=== PATIENT | male | born 1990 | race Caucasian/White ===

== ENCOUNTER 2018-12-10 08:34 | Emergency (ER) | payer OTHER ==
[2018-12-10] MEDS ORDERED: predniSONE 20 MG Tab PO STA (08:59)
[2018-12-10] MEDS ORDERED: Albuterol/Ipratropium 3.0-0.5 MG/3 ML Neb Soln NEB ONE (08:59)
[2018-12-10] MEDS ORDERED: Albuterol 0.083% 2.5 MG/3 ML Neb Soln NEB ONE ×2 (09:25→09:55)
--- NOTE | 2018-12-10 09:40 | EDM.PDOC ---
ED HPI GENERAL MEDICAL PROBLEM - General Chief Complaint: Respiratory Problem Stated Complaint: ASTHMA ATTACK Time Seen by Provider: 12/10/18 08:42 - History of Present Illness INITIAL COMMENTS - FREE TEXT/NARRATIVE: The patient states that he has had asthma his entire life, along with allergic rhinitis. He states that he developed dyspnea, wheezing, and a cough productive of greenish sputum about a week or so ago. He has had chest tightness, but no recent fever or palpitations. No recent nausea, vomiting, constipation, or diarrhea. The patient states that he has been taking about 4 puffs of albuterol via his MDI, without a space chamber, 3-4 times a day. He states that he gets only temporary relief from this. When asked to demonstrate his MDI technique, the patient shortly MDI for only a few seconds, then put it in his mouth. The patient has never been evaluated by a Seating And Mobility Technologist nor undergone pulmonary function tests. He does not have a peak flow meter. The patient does not have a PCP. 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: Reports: Breathing Treatments - Related Data Allergies Allergy/AdvReac Type Severity Reaction Status Date / Time No Known Allergies Allergy Verified 12/10/18 08:41 Home Meds: Home Meds Albuterol [Proventil HFA] 2 puff INH ONCALL PRN 06/15/15 [History] predniSONE [Prednisone] 2 tab PO DAILY #8 tablet 12/10/18 [Rx] Past Medical History HEENT History: Reports: Allergic Rhinitis Respiratory History: Reports: Asthma (suspected, never tested) Gastrointestinal History: Reports: PUD - Past Surgical History HEENT Surgical History: Reports: Oral Surgery (wisdom teeth extraction) GI Surgical History: Reports: EGD (x 1) Musculoskeletal Surgical History: Reports: ORIF (right elbow) Social & Family History - Tobacco Use Smoking Status *Q: Former Smoker Years of Tobacco use: 9 Packs/Tins Daily: 0.3 Month/Year Tobacco Last Used: Quit late October 2018 - Caffeine Use Caffeine Use: Reports: None - Alcohol Use Alcohol Use History: Yes Alcohol Use Frequency: Socially (occasionally to excess) - Recreational Drug Use Recreational Drug Use: No - Living Situation & Occupation Living situation: Reports: Single, with Significant Other (Girlfriend), with Family (2 kids) 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 ED EXAM, GENERAL - Physical Exam Exam: See Below Exam Limited By: No Limitations General Appearance: Alert, WD/WN, No Apparent Distress Eye Exam: Bilateral Eye: EOMI, Normal Inspection Ears: Normal External Exam, Normal Canal, Hearing Grossly Normal, Normal TMs Nose: Normal Inspection, No Blood, Other (Bilateral nasal mucosa edema) Throat/Mouth: Normal Inspection, Normal Lips, Normal Teeth, Normal Gums, Normal Oropharynx (large tonsils), Normal Voice, No Airway Compromise Head: Atraumatic, Normocephalic Neck: Normal Inspection, Supple, Non-Tender, Full Range of Motion. No: Lymphadenopathy (L), Lymphadenopathy (R) Respiratory/Chest: No Respiratory Distress, No Accessory Muscle Use, Wheezing ( expiratory), Prolonged Expiration. No: Decreased Breath Sounds, Crackles, Rhonchi Cardiovascular: Normal Peripheral Pulses, Regular Rate, Rhythm, No Edema, No Gallop, No JVD, No Murmur, No Rub Peripheral Pulses: 4+: Radial (L), Radial (R) GI/Abdominal: Normal Bowel Sounds, Soft, Non-Tender, No Organomegaly, No Distention, No Abnormal Bruit, No Mass (Male) Exam: Deferred Rectal (Males) Exam: Deferred Back Exam: Normal Inspection, Full Range of Motion, NT Extremities: Normal Inspection, Normal Range of Motion, No Pedal Edema, Normal Capillary Refill Neurological: Alert, Oriented, Normal Cognition, No Motor/Sensory Deficits Psychiatric: Normal Affect Skin Exam: Warm, Dry, Intact, Normal Color, No Rash Course - Vital Signs Last Recorded V/S: Last Vital Signs Temp 36.3 C 12/10/18 08:40 Pulse 103 H 12/10/18 08:40 Resp 20 12/10/18 08:40 BP 167/83 H 12/10/18 08:40 Pulse Ox 98 12/10/18 09:25 - Orders/Labs/Meds Orders: Active Orders 24 hr Category Date Time Status RT Aerosol Therapy [RC] ASDIRECTED Care 12/10/18 08:59 Active RT Aerosol Therapy [RC] ASDIRECTED Care 12/10/18 09:25 Active RT Aerosol Therapy [RC] ASDIRECTED Care 12/10/18 09:55 Ordered RT Peak Flow Measurement [RC] ASDIRECTED Care 12/10/18 09:01 Active Meds: Medications Discontinued Medications Generic Name Dose Route Start Last Admin Trade Name Aidan PRN Reason Stop Dose Admin Albuterol 2.5 mg 12/10/18 09:25 12/10/18 09:36 Proventil Neb Soln NEB 12/10/18 09:26 2.5 mg ONETIME ONE Administration Albuterol 2.5 mg 12/10/18 09:55 Proventil Neb Soln [facility] 12/10/18 09:56 ONETIME ONE Albuterol/Ipratropium 3 ml 12/10/18 08:59 12/10/18 09:06 Duoneb 3.0-0.5 Mg/3 Ml NEB 12/10/18 09:00 3 ml ONETIME ONE Administration Prednisone 60 mg 12/10/18 08:59 12/10/18 09:20 Prednisone PO 12/10/18 09:00 60 mg ONETIME STA Administration - Re-Assessments/Exams Free Text/Narrative Re-Assessment/Exam: 12/10/18 09:35 The patient's expiratory wheezing improved substantially following a DuoNeb, however, has not completely resolved, therefore I have ordered an albuterol neb. I will continue to monitor the patient's pulmonary status. The patient was given 60 mg oral prednisone. It is my intention to discharge him home with a prescription for 40 mg daily for the next 4 days. The patient was provided with both a peak flow meter and a space chamber, and instructed on both of their uses. 12/10/18 09:56 The patient's expiratory wheezing has improved further following an albuterol neb treatment. I have ordered a second albuterol neb treatment, after which I will discharge him home. The patient has been advised to not take any NSAIDs while he is on prednisone. I will give him a note to be off work until Thursday, . I will refer him to a Seating And Mobility Technologist in [place]. Departure - Departure Time of Disposition: 09:57 Disposition: Home, Self-Care 01 Condition: Good Clinical Impression: Asthma exacerbation - Discharge Information *PRESCRIPTION DRUG MONITORING PROGRAM REVIEWED*: Not Applicable *COPY OF PRESCRIPTION DRUG MONITORING REPORT IN PATIENT JUSTINO: Not Applicable Referrals: Robin oJn MD [Consulting Physician] - Forms: ED Department Discharge, ED Return to Work/School Form Additional Instructions: You were seen in the emergency room for shortness of breath, wheezing, and a cough for the past week or so. Based on your history and physical examination, you were most likely suffering from an asthma exacerbation. Your symptoms significantly improved following treatment with DuoNeb, albuterol , and prednisone. A prescription for prednisone has been sent to the [facility]. Take 2 tablets (40 mg) of prednisone every day, with food, starting tomorrow, Thursday , 12/11/2018, as prescribed. Finish the entire prescription unless told otherwise by a doctor. While on prednisone, it is important that you not take any NSAIDs, such as aspirin, ibuprofen (Advil, Motrin), or naproxen (Aleve). You were provided with a peak flow meter and a space chamber in the ER. Check your peak flow twice a week. Once you have learned how to use it properly , if you cannot get your peak flow into the green zone, even though you may feel well, contact your doctor for advice, as this may indicate an impending asthma exacerbation. If you are feeling shortness of breath with wheezing, with or without a cough, and your peak flow is in the red or green zone, take albuterol, using your space chamber, as instructed, as often as necessary to relieve your symptoms, however, if you require albuterol more often than every 4 hours, you need to be seen by a doctor. A note to be off work until 12/13/2018, has been provided to you. Follow-up with the Seating And Mobility Technologist Dr. Robin Jon, in [place], at the next available appointment. If any other problems, please do not hesitate to return to the ER. - My Orders Last 24 Hours: My Active Orders 12/10/18 08:59 RT Aerosol Therapy [RC] ASDIRECTED 12/10/18 09:01 RT Peak Flow Measurement [RC] ASDIRECTED 12/10/18 09:25 RT Aerosol Therapy [RC] ASDIRECTED 12/10/18 09:55 RT Aerosol Therapy [RC] ASDIRECTED - Assessment/Plan Last 24 Hours: My Active Orders 12/10/18 08:59 RT Aerosol Therapy [RC] ASDIRECTED 12/10/18 09:01 RT Peak Flow Measurement [RC] ASDIRECTED 12/10/18 09:25 RT Aerosol Therapy [RC] ASDIRECTED 12/10/18 09:55 RT Aerosol Therapy [RC] ASDIRECTED
== END 2018-12-10 10:19 | disposition home or self-care (01) ==
LOC: JD.ED 08:34
DX: J45.901 Unspecified asthma with (acute) exacerbation (principal); Z79.899 Other long term (current) drug therapy; Z87.891 Personal history of nicotine dependence
CPT/HCPCS: 94640; 99284; A9270; 99283; J7620-GY

== ENCOUNTER 2019-01-23 17:14 | Emergency (ER) | payer OTHER ==
[2019-01-23] MEDS ORDERED: Acetaminophen/HYDROcodone 325-5 MG Tab PO ONE (18:02)
[2019-01-23] MEDS ORDERED: Diphtheria,Pertussis(Acell),Tetanus Vaccine 0.5 ML Syringe IM ONE (18:02)
--- NOTE | 2019-01-23 18:52 | EDM.PDOC ---
ED HPI GENERAL MEDICAL PROBLEM - General Chief Complaint: Upper Extremity Injury/Pain Stated Complaint: R HAND & L FOOT INJURIES Time Seen by Provider: 01/23/19 17:52 Source of Information: Reports: Patient History Limitations: Reports: No Limitations - History of Present Illness INITIAL COMMENTS - FREE TEXT/NARRATIVE: 28-year-old male presents to emergency with chief complaints of right hand pain and left great toe pain. He reports that yesterday while working on his yard while using a post and chain, the chain slipped and he crushed his hand between a pole and the chain. He states he dropped a pole landing on his left great toe. He also reports that he stepped on a nail yesterday. He is uncertain of his last tetanus shot. Patient does report that he is right-handed. He does not have a PCP. He is accompanied by his . He denies any fever or chills he denies any neck or back pain. Onset Date: 01/22/19 Onset Time: 16:00 Duration: Getting Worse, Intermittent Location: Reports: Upper Extremity, Right, Lower Extremity, Left Quality: Reports: Ache Severity: Mild Improves with: Reports: None Worsens with: Reports: Movement Associated Symptoms: Denies: Chest Pain, Cough, Fever/Chills, Nausea/Vomiting, Shortness of Breath, Weakness Right Hand Pain Score (Numeric/FACES): 8 Left Toe-Hailux Pain Score (Numeric/FACES): 7 - Related Data Allergies Allergy/AdvReac Type Severity Reaction Status Date / Time No Known Allergies Allergy Verified 01/23/19 17:36 Home Meds: Home Meds Albuterol [Proventil HFA] 2 puff INH ONCALL PRN 06/15/15 [History] Clindamycin HCl 150 mg PO TID 7 Days #21 capsule 01/23/19 [Rx] Montelukast [Singulair] 10 mg PO DAILY 01/23/19 [History] Past Medical History HEENT History: Reports: Allergic Rhinitis Respiratory History: Reports: Asthma Gastrointestinal History: Reports: PUD - Past Surgical History HEENT Surgical History: Reports: Oral Surgery GI Surgical History: Reports: EGD Musculoskeletal Surgical History: Reports: ORIF Social & Family History - Tobacco Use Smoking Status *Q: Never Smoker - Caffeine Use Caffeine Use: Reports: None - Living Situation & Occupation Living situation: Reports: Single, with Significant Other (Girlfriend), with Family (2 kids) 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) Review of Systems - Review of Systems Review Of Systems: See Below Constitutional: Denies: Chills, Fever Eyes: Reports: No Symptoms Ears: Reports: No Symptoms Nose: Reports: No Symptoms Mouth/Throat: Reports: No Symptoms Respiratory: Denies: Shortness of Breath Cardiovascular: Denies: Chest Pain GI/Abdominal: Denies: Abdominal Pain Genitourinary: Reports: No Symptoms Musculoskeletal: Reports: Hand Pain (Right), Other (Left great toe pain) Skin: Reports: Other (Right hand erythematous) Neurological: Reports: No Symptoms Psychiatric: Reports: No Symptoms ED EXAM, GENERAL - Physical Exam Exam: See Below Exam Limited By: No Limitations General Appearance: Alert, WD/WN, No Apparent Distress Neck: Normal Inspection, Supple, Non-Tender, Full Range of Motion Respiratory/Chest: No Respiratory Distress, Lungs Clear, Normal Breath Sounds, No Accessory Muscle Use, Chest Non-Tender Cardiovascular: Normal Peripheral Pulses, Regular Rate, Rhythm, No Edema, No Gallop, No JVD, No Murmur, No Rub Back Exam: Normal Inspection, Full Range of Motion Extremities: Normal Inspection, Other (Right hand is slightly red and warm to touch. Decreased range of motion due to pain, neurovascularly intact. Left great toe decreased range of motion due to pain neurovascular intact, there is no erythema or swelling noted.). No: Pedal Edema Neurological: Alert, Oriented, CN II-XII Intact, Normal Cognition, Normal Gait, Normal Reflexes, No Motor/Sensory Deficits Psychiatric: Normal Affect, Normal Mood Skin Exam: Warm, Dry, Intact, Normal Color, No Rash, Other (Left plantar puncture wound noted from a recent nail. There is no erythema tenderness or swelling noted.) Lymphatic: No Adenopathy Course - Vital Signs Last Recorded V/S: Last Vital Signs Temp 98.2 F 01/23/19 17:39 Pulse 80 01/23/19 17:39 Resp 18 01/23/19 17:39 BP 134/74 01/23/19 17:39 Pulse Ox 100 01/23/19 17:39 - Orders/Labs/Meds Orders: Active Orders 24 hr Category Date Time Status Vaccines to be Administered [RC] PER UNIT ROUTINE Care 01/23/19 18:02 Active Foot 2V Lt [CR] Stat Exams 01/23/19 18:02 Taken Hand 2V Rt [CR] Stat Exams 01/23/19 18:01 Taken Meds: Medications Discontinued Medications Generic Name Dose Route Start Last Admin Trade Name Aidan PRN Reason Stop Dose Admin Hydrocodone Bitart/Acetaminophen 1 tab 01/23/19 18:02 01/23/19 18:18 Herminie 325-5 Mg PO 01/23/19 18:03 1 tab ONETIME ONE Administration Diphtheria/Tetanus/Acell Pertussis 0.5 ml 01/23/19 18:02 01/23/19 18:16 Adacel IM 01/23/19 18:03 0.5 ml .ONCE ONE Administration - Re-Assessments/Exams Free Text/Narrative Re-Assessment/Exam: 01/23/19 19:51 28-year-old male presents for suture complaints of right hand pain and left foot pain after working in the yard yesterday. His hand x-ray revealed no fracture dislocation, left foot reveals no fracture or dislocation. I will discharge home with clindamycin for outpatient antibiotic therapy. I did instruct the patient took medication as prescribed and follow-up with his PCP. Instructed patient to return for any new or acutely worsening symptoms. Patient verbalizes understanding and discomfort plan for discharge. Departure - Departure Time of Disposition: 19:52 Disposition: Home, Self-Care 01 Clinical Impression: Sprain of right hand Qualifiers: Encounter type: initial encounter Qualified Code(s): S63.91XA - Sprain of unspecified part of right wrist and hand, initial encounter Sprain of left great toe Qualifiers: Encounter type: initial encounter Qualified Code(s): S93.502A - Unspecified sprain of left great toe, initial encounter Puncture wound of left foot Qualifiers: Encounter type: initial encounter Qualified Code(s): S91.332A - Puncture wound without foreign body, left foot, initial encounter - Discharge Information Prescriptions: Clindamycin HCl 150 mg PO TID 7 Days #21 capsule Instructions: Puncture Wound, [id number], Cryotherapy, [id number], Finger Sprain, Adult, [id number], Crush Injury of the Hand, [id number] Referrals: Ledy Pierre [facility] [employer] [Primary Care Provider] - Forms: ED Department Discharge - My Orders Last 24 Hours: My Active Orders 01/23/19 18:01 Hand 2V Rt [CR] Stat 01/23/19 18:02 Vaccines to be Administered [RC] PER UNIT ROUTINE Foot 2V Lt [CR] Stat - Assessment/Plan Last 24 Hours: My Active Orders 01/23/19 18:01 Hand 2V Rt [CR] Stat 01/23/19 18:02 Vaccines to be Administered [RC] PER UNIT ROUTINE Foot 2V Lt [CR] Stat
--- NOTE | 2019-01-25 10:28 | CR ---
Left foot: Two views of the left foot were obtained. Comparison: No prior foot exam. Joint spaces are preserved. No discrete fracture or other bony abnormality is seen. Impression: 1. No definite abnormality on left foot exam limited to two views. Diagnostic code #1
--- NOTE | 2019-01-25 10:33 | CR ---
Right hand: Two views of the right hand were obtained. Comparison: No prior right hand study. Soft tissue swelling is identified. Joint spaces within the right hand are preserved. No discrete fracture or other abnormality is seen. Impression: 1. Soft tissue swelling. No discrete bony abnormality is seen on the limited two-view right hand exam. Diagnostic code #2
== END 2019-01-23 20:05 | disposition home or self-care (01) ==
LOC: JD.ED 17:14
DX: S91.332A Puncture wound without foreign body, left foot, initial encounter (principal); S63.91XA Sprain of unspecified part of right wrist and hand, initial encounter; S93.502A Unspecified sprain of left great toe, initial encounter; Z23 Encounter for immunization; W20.8XXA Other cause of strike by thrown, projected or falling object, initial encounter
CPT/HCPCS: 73120; 73620; 90471; 90700; 99283; A9270

== ENCOUNTER 2022-08-01 20:50 | Emergency (ER) | payer BC, OTHER ==
[2022-08-01] MEDS ORDERED: Albuterol/Ipratropium 3.0-0.5 MG/3 ML Neb Soln ONE (20:56)
[2022-08-01] MEDS ORDERED: Sodium Chloride 0.9% 10 ML Syringe FLUSH PRN (20:59)
[2022-08-01] MEDS ORDERED: LORazepam 2 MG/ML SDV IVPUSH ONE (20:59)
[2022-08-01] MEDS ORDERED: methylPREDNISolone Sodium Succinate 125 MG/2 ML SDV IVPUSH ONE (20:59)
[2022-08-01] MEDS ORDERED: Albuterol/Ipratropium 3.0-0.5 MG/3 ML Neb Soln NEB ONE (21:00)
[2022-08-01] MEDS ORDERED: Albuterol 0.083% 2.5 MG/3 ML Neb Soln NEB ONE (21:35)
[2022-08-01] MEDS ORDERED: Acetaminophen 325 MG Tab PO ONE (21:48)
== END 2022-08-01 22:38 | disposition home or self-care (01) ==
LOC: JD.ED 20:50
DX: J45.41 Moderate persistent asthma with (acute) exacerbation (principal); Z79.899 Other long term (current) drug therapy
CPT/HCPCS: 36415; 71045; 80053; 85025; 86140; 94640; 96374; 96375; 99285; A9270; J2060; J2930; J3490; J7620-GY

== ENCOUNTER 2023-04-20 00:51 | Inpatient (IN) | payer BC ==
[2023-04-20] MEDS ORDERED: Albuterol/Ipratropium 3.0-0.5 MG/3 ML Neb Soln NEB ONE ×2 (01:03→07:04)
[2023-04-20] MEDS ORDERED: Albuterol 0.083% 2.5 MG/3 ML Neb Soln NEB ONE ×6 (01:29→05:33)
[2023-04-20] MEDS ORDERED: predniSONE 20 MG Tab PO STA (01:32)
[2023-04-20] MEDS ORDERED: Ketorolac 30 MG/ML SDV IVPUSH STA (02:13)
[2023-04-20] MEDS ORDERED: Albuterol 0.083% 2.5 MG/3 ML Neb Soln ONE (02:33)
[2023-04-20] MEDS ORDERED: Sodium Chloride 0.9% 1,000 ML IV ONE (06:25)
[2023-04-20] MEDS ORDERED: Ondansetron 4 MG/2 ML SDV IVPUSH ONE (06:25)
[2023-04-20 06:32] LABS: HEMATOCRIT 47.3 % (40.1-51.0); HEMOGLOBIN 16.5 gm/dl (13.7-17.5); MEAN CORPUSCULAR HEMOGLOBIN 30.1 pg (25.7-32.2); MEAN CORPUSCULAR HGB CONC 34.9 g/dl (32.2-35.5); MEAN CORPUSCULAR VOLUME 86.3 fl (79.0-92.2); MEAN PLATELET VOLUME 9.5 fl (9.4-12.3); RED BLOOD CELL COUNT 5.48 M/mm3 (4.63-6.08); WHITE BLOOD CELL COUNT,WBC 18.59 K/mm3 (4.23-9.07)
[2023-04-20 06:38] LABS: PLATELET COUNT,PLT 340 K/mm3 (163-337)
[2023-04-20 06:43] LABS: ALBUMIN 4.7 g/dl (3.4-5.0); ANION GAP 16.3 (5-15); BILIRUBIN TOTAL 0.7 mg/dL (0.2-1.0); BUN/CREATININE RATIO 8.2 (14-18); CALCIUM 9.3 mg/dL (8.5-10.1); CREATININE 1.1 mg/dL (0.7-1.3); EST CRCL DRUG DOSING (CG) 105.82 mL/min; POTASSIUM,K 4.3 mEq/L (3.5-5.1); PROTEIN TOTAL,TP 9.3 g/dl (6.4-8.2)
[2023-04-20 06:58] LABS: C-REACTIVE PROTEIN 13.4 mg/dL (<1.0)
[2023-04-20 07:36] LABS: BAND PERCENT MAN 3 % (0-10); BASOPHILS PERCENT MAN 1 (0.2-1.2); EOSINOPHILS PERCENT MAN 0 % (0.8-7.0); LYMPHOCYTES % ATYPICAL MANUAL 0 %; LYMPHOCYTES PERCENT MAN 1 % (20-40); MONOCYTES PERCENT MAN 2 % (2-10)
[2023-04-20 07:37] LABS: PLATELET COUNT ESTIMATE ADEQUATE
[2023-04-20] MEDS ORDERED: Ondansetron 4 MG/2 ML SDV IV PRN (09:29)
[2023-04-20] MEDS ORDERED: methylPREDNISolone Sodium Succinate 125 MG/2 ML SDV IVPUSH ONE (09:45)
[2023-04-20] MEDS ORDERED: Albuterol 0.083% 2.5 MG/3 ML Neb Soln NEB PRN (09:48)
[2023-04-20] MEDS: Acetaminophen 325 MG Tab PO PRN ×2 (10:11→21:03)
[2023-04-20] MEDS: Doxycycline Monohydrate 100 MG Cap PO SCH ×2 (10:12→21:03)
[2023-04-20] MEDS: Montelukast 10 MG Tab PO SCH (10:20)
[2023-04-20] MEDS: Sertraline 50 MG Tab PO SCH (10:20)
[2023-04-20] MEDS: hydrOXYzine HCl 10 MG Tab PO PRN (10:21)
[2023-04-20] MEDS: Albuterol/Ipratropium 3.0-0.5 MG/3 ML Neb Soln NEB SCH ×4 (10:28→21:19)
[2023-04-20] MEDS: Enoxaparin 40 MG/0.4 ML Syringe SUBCUT SCH (11:20)
[2023-04-20] MEDS ORDERED: traZODone 50 MG Tab PO PRN (19:46)
[2023-04-21] MEDS: Albuterol/Ipratropium 3.0-0.5 MG/3 ML Neb Soln NEB SCH ×3 (02:00→09:29)
[2023-04-21 05:54] LABS: HEMATOCRIT 43.7 % (40.1-51.0); HEMOGLOBIN 15.1 gm/dl (13.7-17.5); MEAN CORPUSCULAR HEMOGLOBIN 30.3 pg (25.7-32.2); MEAN CORPUSCULAR HGB CONC 34.6 g/dl (32.2-35.5); MEAN CORPUSCULAR VOLUME 87.8 fl (79.0-92.2); MEAN PLATELET VOLUME 9.7 fl (9.4-12.3); PLATELET COUNT,PLT 347 K/mm3 (163-337); RED BLOOD CELL COUNT 4.98 M/mm3 (4.63-6.08); WHITE BLOOD CELL COUNT,WBC 17.48 K/mm3 (4.23-9.07)
[2023-04-21 06:44] LABS: ANION GAP 17.2 (5-15); BUN/CREATININE RATIO 13.6 (14-18); CALCIUM 9.3 mg/dL (8.5-10.1); CREATININE 1.1 mg/dL (0.7-1.3); EST CRCL DRUG DOSING (CG) 105.82 mL/min; POTASSIUM,K 4.2 mEq/L (3.5-5.1)
[2023-04-21] MEDS ORDERED: predniSONE 20 MG Tab PO SCH (07:00)
[2023-04-21 07:05] LABS: C-REACTIVE PROTEIN 9.8 mg/dL (<1.0)
[2023-04-21] MEDS: Montelukast 10 MG Tab PO SCH (08:30)
[2023-04-21] MEDS: Doxycycline Monohydrate 100 MG Cap PO SCH (08:30)
[2023-04-21] MEDS: Sertraline 50 MG Tab PO SCH (08:30)
[2023-04-21] MEDS: hydrOXYzine HCl 10 MG Tab PO PRN (08:31)
[2023-04-21] MEDS: Enoxaparin 40 MG/0.4 ML Syringe SUBCUT SCH (08:33)
[2023-04-21] MEDS ORDERED: Enoxaparin 40 MG/0.4 ML Syringe SUBCUT SCH (09:00)
== END 2023-04-21 13:40 | disposition home or self-care (01) | DRG 133 ==
LOC: JD.ED 00:51 → JD.MS 08:37
PROVIDERS: ADMIT Internal Medicine; ATTEND Internal Medicine
DX: J96.01 Acute respiratory failure with hypoxia (principal); J45.51 Severe persistent asthma with (acute) exacerbation; F41.9 Anxiety disorder, unspecified; F32.A Depression, unspecified; F90.9 Attention-deficit hyperactivity disorder, unspecified type; F43.10 Post-traumatic stress disorder, unspecified; Z87.11 Personal history of peptic ulcer disease; Z20.822 Contact with and (suspected) exposure to COVID-19; J98.11 Atelectasis; Z79.899 Other long term (current) drug therapy; Z98.890 Other specified postprocedural states; Z87.891 Personal history of nicotine dependence; Z86.16 Personal history of COVID-19
CPT/HCPCS: 36415; 71045; 71045-26; 80048; 80053; 83735; 85007; 85027; 86140; 87804; 94640; 94761; 96361; 96374; 96375; 99285; 99285-25; A9270-GY; J1650; J1885; J2405; J2930; J7030; J7512; J7620-GY; U0002